=== PATIENT | female | born 1985 | race Caucasian/White ===

== ENCOUNTER 2018-06-25 11:12 | Emergency (ER) | payer SELFPAY ==
--- OUTSIDE RECORDS SUMMARY | 2018-06-25 11:13 | XMS REPORT ---
:1985 [facility] Address [address] [place] [address] Care Team Providers Name Role Phone NONE, AVAILABLE Unavailable Unavailable Problems This patient has no known problems. Allergies, Adverse Reactions, Alerts This patient has no known allergies or adverse reactions. Medications This patient has no known medications. Results Test Description Test Time Test Comments Text Results Atomic Results Result Comments TSH (Ultra Sensitive) 2018-05-30 10:09:00 Test Item Value Reference Range Comments TSH (test code=TSH) 1.36 mIU/L 0.47-4.68
--- NOTE | 2018-06-25 12:34 | ER ---
Nurse's Notes [facility] Name: Michelle Watkins Age: 32 yrs Sex: Female : 1985 Arrival Date: 06/25/2018 Time: 11:15 Bed 10 Private MD: Diagnosis: Sciatica, left side Presentation: 06/25 11:38 Presenting complaint: Patient states: pt reports having left hip pain, has chronic sg lower back pain, left hip pain is new. Denies trauma/fall/injury to the area, reports trying to increase activity but having the pain has kept her from doing her daily walks. Transition of care: patient was not received from another setting of care. Onset of symptoms was June 25, 2018. Risk Assessment: Do you want to hurt yourself or someone else? Patient reports no desire to harm self or others. Initial Sepsis Screen: Does the patient meet any 2 criteria? No. Patient's initial sepsis screen is negative. Does the patient have a suspected source of infection? No. Patient's initial sepsis screen is negative. Care prior to arrival: None. 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 - Social history:: Smoking status: Patient/guardian denies using tobacco, Patient/guardian denies using IV drugs. - Ebola Screening: : Patient negative for fever greater than or equal to 101.5 degrees Fahrenheit, and additional compatible Ebola Virus Disease symptoms Patient denies exposure to infectious person Patient denies travel to an Ebola-affected area in the 21 days before illness onset No symptoms or risks identified at this time. Screenin:07 Abuse screen: Denies threats or abuse. Denies injuries from another. Nutritional iw screening: No deficits noted. Tuberculosis screening: No symptoms or risk factors identified. Fall Risk None identified. Assessment: 12:06 General: Appears in no apparent distress. Behavior is calm, cooperative. Pain: iw Complains of pain in left hip. Neuro: Level of Consciousness is awake, alert, obeys commands, Oriented to person, place, time, situation, Moves all extremities. Full function. Cardiovascular: Patient's skin is warm and dry. Respiratory: Respiratory effort is even, unlabored. Derm: Skin is intact, is healthy with good turgor. Musculoskeletal: Range of motion: intact in all extremities, Reports pain in left hip. 12:47 Reassessment: Patient appears in no apparent distress at this time. Patient and/or iw family updated on plan of care and expected duration. Pain level reassessed. Patient is alert, oriented x 3, equal unlabored respirations, skin warm/dry/pink. waiting for ride. Vital Signs: 11:40 BP 139 / 99; Pulse 74; Resp 16; Temp 97.6; Pulse Ox 100% on R/A; Weight 136.08 kg (R); sg Height 5 ft. 6 in. (167.64 cm); Pain 8/10; 11:40 Body Mass Index 48.42 (136.08 kg, 167.64 cm) sg ED Course: 11:15 Patient arrived in ED. mr 11:38 Arm band placed on. sg 11:40 Triage completed. sg 11:42 Connie Nicholson [facility]. rh1 11:42 Casey Kennedy MD is Attending Physician. rh1 11:53 Laurie Lou RN is Primary Nurse. iw 12:06 Patient has correct armband on for positive identification. iw 12:47 No provider procedures requiring assistance completed. Patient did not have IV access iw during this emergency room visit. Administered Medications: 12:46 Drug: Flexeril 10 mg Route: PO; iw 13:00 Follow up: Response: No adverse reaction iw 12:46 Drug: Dexamethasone 10 mg Route: IM; Site: left gluteus; iw 13:05 Follow up: Response: No adverse reaction iw Outcome: 12:33 Discharge ordered by . rh1 13:07 Discharged to home ambulatory. iw 13:07 Condition: good 13:07 Discharge instructions given to patient, Instructed on discharge instructions, follow up and referral plans. medication usage, Demonstrated understanding of instructions, follow-up care, medications, Prescriptions given X 2. 13:08 Patient left the ED. iw Signatures: Ion Chamorro RN Jessica Medina Irene RN Connie Tatum, MARBLE POLISHER MARBLE POLISHER rh1
--- NOTE | 2018-06-25 12:34 | EDPHYS ---
Physician Documentation [facility] Emergency [facility] Name: Michelle Watkins Age: 32 yrs Sex: Female : 1985 Arrival Date: 06/25/2018 Time: 11:15 Bed 10 Private MD: ED Physician Casey Kennedy HPI: 06/25 12:09 This 32 yrs old Female presents to ER via Ambulatory with complaints of Hip rh1 Pain. 12:09 The patient or guardian reports pain. sustained from unknown reason, The patient is rh1 able to self ambulate. The patient is able to bear their full body weight. The patient's discomfort radiates to the lateral aspect of left thigh, lateral aspect of left knee, lateral aspect of left calf, left hamstring and posterior aspect of left knee. The complaints affect the left hip. Onset: The symptoms/episode began/occurred 3 month(s) ago. Modifying factors: The symptoms are alleviated by remaining still, the symptoms are aggravated by movement, walking. Associated signs and symptoms: Pertinent negatives: abdominal pain, dysuria, fever, incontinence, nausea, vomiting, weakness. Severity of symptoms: At their worst the symptoms were moderate, in the emergency department the symptoms are unchanged. The patient has experienced similar episodes in the past. The patient has not recently seen a physician. She has had left hip/buttock pain ongoing for the past 3 months, initially intermittently and for the past 1 week has been constant. Her pain will intermittently radiate into the left leg, with occasional numbness at the dorsal foot. If she lays on the right hip with knees flexed her pain resolves, returns with movement. She reports hx of chronic back pain for > 5 years, with "8 herniated discs," overall denies any worsening back pain. She denies any fever/chills, abdomina pain, symptoms, no saddle paresthesias, weakness, trauma. 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 - Social history:: Smoking status: Patient/guardian denies using tobacco, Patient/guardian denies using IV drugs. - Ebola Screening: : Patient negative for fever greater than or equal to 101.5 degrees Fahrenheit, and additional compatible Ebola Virus Disease symptoms Patient denies exposure to infectious person Patient denies travel to an Ebola-affected area in the 21 days before illness onset No symptoms or risks identified at this time. ROS: 12:09 Constitutional: Negative for fever, chills, and weight loss. rh1 12:09 Cardiovascular: Negative for chest pain. 12:09 Respiratory: Negative for cough, shortness of breath. 12:09 Abdomen/GI: Negative for abdominal pain, nausea, vomiting, and diarrhea, bowel incontinence. 12:09 Back: Positive for pain at rest, pain with movement. 12:09 : Negative for urinary symptoms, small amounts, bladder incontinence. 12:09 MS/extremity: Positive for pain, Negative for decreased range of motion, deformity, swelling, tenderness, tingling. 12:09 Skin: Negative for discoloration, rash. 12:09 Neuro: Positive for numbness, intermittently at left foot, none ongoing at this time, Negative for dizziness, gait disturbance, tingling, weakness. Exam: 12:31 Constitutional: This is a well developed, well nourished patient who is awake, alert, rh1 and in no acute distress. Head/Face: Normocephalic, atraumatic. Neck: Trachea midline, and no cervical lymphadenopathy. Supple, full range of motion without nuchal rigidity. No Meningismus. Chest/axilla: Normal chest wall appearance and motion. Nontender with no deformity. No lesions are appreciated. Cardiovascular: Regular rate and rhythm with a normal S1 and S2. No gallops, murmurs, or rubs. No JVD. No pulse deficits. Respiratory: Lungs have equal breath sounds bilaterally, clear to auscultation. No rales, rhonchi or wheezes noted. No increased work of breathing. Abdomen/GI: Soft, non-tender, with normal bowel sounds. No distension. No guarding or rebound. No evidence of tenderness throughout. 12:31 Skin: Warm, dry with normal turgor. Normal color with no rashes, no lesions, and no evidence of cellulitis. MS/ Extremity: Pulses equal, no cyanosis. Neurovascular intact. Full, normal range of motion. 12:31 Back: Exam negative for ecchymosis vertebral tenderness, pain, that is moderate, of the left low back/buttock, ROM is painful, with flexion, with extension, CVA tenderness, is absent, muscle spasm, is not present, Straight leg raises: left lower extremity illicits pain. 12:31 Neuro: Orientation: is normal, to person, place \\T\\ time. Mentation: is normal, lucid, able to follow commands, Motor: is normal, moves all fours, strength is 5/5 in all extremities, Sensation: is normal, no obvious gross deficits, numbness, is not appreciated, tingling, is not appreciated, Gait: is steady, at a normal pace, without difficulty, Deep tendon reflexes are 2+ (normal) in the right patellar, right Achilles, left patellar and left Achilles. Vital Signs: 11:40 BP 139 / 99; Pulse 74; Resp 16; Temp 97.6; Pulse Ox 100% on R/A; Weight 136.08 kg (R); sg Height 5 ft. 6 in. (167.64 cm); Pain 8/10; 11:40 Body Mass Index 48.42 (136.08 kg, 167.64 cm) sg MDM: 12:09 Patient medically screened. [facility] 12:36 Data reviewed: vital signs, nurses notes, lab test result(s), and as a result, I will 1 discharge patient. Data interpreted: Pulse oximetry: on room air is 100 %. Interpretation: normal. Counseling: I had a detailed discussion with the patient and/or guardian regarding: the historical points, exam findings, and any diagnostic results supporting the discharge/admit diagnosis, lab results, the need for outpatient follow up, a family practitioner, a neurosurgeon, to return to the emergency department if symptoms worsen or persist or if there are any questions or concerns that arise at home. 06/25 12:41 Order name: Urine Dipstick--Ancillary (enter results) eb 06/25 12:41 Order name: Urine --Ancillary (enter results) eb 06/25 12:26 Order name: Urine Dipstick-Ancillary (obtain specimen); Complete Time: 12:46 rh1 06/25 12:26 Order name: Urine Test (obtain specimen); Complete Time: 12:46 rh1 Administered Medications: 12:46 Drug: Flexeril 10 mg Route: PO; iw 13:00 Follow up: Response: No adverse reaction iw 12:46 Drug: Dexamethasone 10 mg Route: IM; Site: left gluteus; iw 13:05 Follow up: Response: No adverse reaction iw Disposition: 18:32 Co-signature as Attending Physician, Casey Kennedy MD. Disposition: 06/25/18 12:33 Discharged to Home. Impression: Sciatica, left side. - Condition is Stable. - Discharge Instructions: Sciatica, Back Exercises, [id number], Radicular Pain. - Prescriptions for Ibuprofen 600 mg Oral Tablet - take 1 tablet by ORAL route every 8 hours As needed take with food; 20 tablet. Cyclobenzaprine 5 mg Oral Tablet - take 1 tablet by ORAL route 3 times per day As needed; 15 tablet. - Medication Reconciliation Form, Thank You Letter, Antibiotic Education, Prescription Opioid Use form. - Follow up: Private Physician; When: 1 - 2 days; Reason: Recheck today's complaints, Continuance of care, Re-evaluation by your physician. Follow up: Emergency Department; When: As needed; Reason: Fever > 102 F, If symptoms return, Trouble breathing, Worsening of condition. - Problem is new. - Symptoms have improved. - Notes: 1. Alternate tylenol every 4 hours, and ibuprofen every 8 hours for pain. Signatures: Dispatcher [employer] EDMS Ion Chamorro RN RN sg Laurie Lou RN RN iw Connie Nicholson, CHEF TEACHER CHEF TEACHER rh1 Casey Kennedy MD MD Corrections: (The following items were deleted from the chart) 12:32 12:09 She has had right hip/buttock pain ongoing for the past 3 months, initially rh1 intermittently and for the past 1 week has been constant. Her pain will intermittently radiate into the left leg, with occasional numbness at the dorsal foot. She reports hx of chronic back pain for > 5 years, with "8 herniated discs," overall denies any worsening back pain. She denies any fever/chills, abdomina pain, symptoms, no saddle paresthesias, weakness, trauma. 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 rh1 13:08 12:33 06/25/2018 12:33 Discharged to Home. Impression: Sciatica, left side. Condition iw is Stable. Forms are Medication Reconciliation Form, Thank You Letter, Antibiotic Education, Prescription Opioid Use. Follow up: Private Physician; When: 1 - 2 days; Reason: Recheck today's complaints, Continuance of care, Re-evaluation by your physician. Follow up: Emergency Department; When: As needed; Reason: Fever > 102 F, If symptoms return, Trouble breathing, Worsening of condition. Problem is new. Symptoms have improved. rh1
[2018-06-25] MEDS ORDERED: CYCLOBENZAPRINE 10 MG TAB ONE (12:45)
[2018-06-25] MEDS ORDERED: DEXAMETHASONE 4 MG/ML VIAL ONE (12:46)
[2018-06-25 18:25] LABS: Urine Blood NEGATIVE (NEG); Urine Glucose NEGATIVE (NEG); Urine Protein NEGATIVE (NEG)
== END 2018-06-25 13:08 | disposition home or self-care (01) ==
LOC: ER 11:12
DX: M54.32 Sciatica, left side (principal); Z88.0 Allergy status to penicillin; Z88.3 Allergy status to other anti-infective agents; Z88.5 Allergy status to narcotic agent
CPT/HCPCS: 81003; 81025; 96372; 99283